=== PATIENT | male | born 1990 | race Caucasian/White ===

== ENCOUNTER 2018-12-13 23:52 | Emergency (ER) | payer MEDICAID ==
[~2018-12-13] VITALS: Ht 188 cm; Wt 113.0 kg
[2018-12-14] MEDS ORDERED: KETO10TA2 PO (00:21)
[2018-12-14 03:47] VITALS: BP 135/78
== END 2018-12-14 04:00 | disposition home or self-care (01) ==
LOC: EMS 23:56
DX: K02.9 Dental caries, unspecified (principal); J45.909 Unspecified asthma, uncomplicated; E11.9 Type 2 diabetes mellitus without complications; I10 Essential (primary) hypertension